=== PATIENT | male | born 1990 | race Caucasian/White ===

== ENCOUNTER 2016-06-08 22:31 | Emergency (ER) | payer OTHER, BC ==
[~2016-06-08] VITALS: Ht 177.8 cm; Wt 63.1 kg
[2016-06-08 22:58] VITALS: Ht 177.8 cm; Wt 63.1 kg
[2016-06-08] MEDS ORDERED: NO ROUTINE MEDS (23:02)
--- NOTE | 2016-06-08 23:38 | NUR ---
KIARA PT AMBULATORY TO XRAY FROM [facility]
--- NOTE | 2016-06-08 23:45 | NUR ---
LOBBY PT RETURNED TO LOBBY AMBULATORY FROM XRAY
--- NOTE | 2016-06-08 23:51 | NUR ---
[facility] PT AMBULATORY TO RECLINER IN [facility] FROM [facility]
--- NOTE | 2016-06-09 00:01 | ERPDOC ---
Departure Disposition Decision Date: Jun 09, 2016 Disposition Decision Time: 00:10 (MAE ALBRECHT APRN) Disposition: 01 DISCHARGED HOME, SELF-CARE Impression Impression (MAE ALBRECHT APRN) Impression: Primary Impression: Contusion of left foot Encounter type: initial encounter Qualified Codes: S90.32XA - Contusion of left foot, initial encounter Severity: Mild (MAE ALBRECHT APRN) Condition: Stable Seen By: Mid-level only (MAE ALBRECHT APRN) Patient Instructions: Foot Contusion (ED) Problems/Meds/Labs Reviewed?: Yes Medications reviewed and manag: Yes (MAE ALBRECHT APRN) Additional Instructions: Your x-rays did not show a fracture. Take ibuprofen or tylenol for pain. You may ice foot (see discharge instructions). Follow with your PCP in one week if pain is not improving, sooner if worsening pain. Follow treatment plan. Departure Forms: Return to Work/School Permit Return to Work/School Date: Jun 10, 2016 Follow up care ordered?: Yes Mental Status: Alert, Oriented (MAE ALBRECHT APRN) HPI General Chief Complaint: Lower Extremity Injury Stated Complaint: LFT FOOT PAIN Time Seen by Provider: 23:52 Source: patient (MAE ALBRECHT APRN) Time Seen by Provider: 23:52 (MUSA OTERO DO) HPI Foot/Ankle Initial Comments 25-year-old male presents to ER with complaints of left foot pain. Patient states that he was at work this evening when a cart ran over the top of his foot. Cart had part in it at the time. Patient reports pain over distal metatarsals and phalanges. Patient is able to bear weight. Patient has not taken anything for pain. Duration: 1-3 hrs Pain Scale: Now: 6/10 Location: left: foot Associated Symptoms: pain with extension, pain with flexion, DENIES: bruising, numbness, pain with standing, redness, swelling, weakness (MAE ALBRECHT APRN ) Allergies: Coded Allergies: No Known Allergies (Unverified , 06/08/16) Past History Past Medical History Pt denies signifigant PMH (MAE ALBRECHT APRN) Surgical History Denies Surgeries (MAE ALBRECHT APRN) Family History Family PMH: FOUND: other (noncontributory) (ALBRECHT,MAE A SONAR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) Social History Current Occupational Status: employed (MAE ALBRECHT SON[employer]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) Review of Systems Constitutional Constitutional: DENIES: chills, fever (CHETAN ALBRECHTS A SONAR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) Eyes General: DENIES: erythema, exudate Lids/Accessories: DENIES: erythema, swelling (CHETAN ALBRECHTS A SONAR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) ENMT Ears: DENIES: pain Hearing: DENIES: hearing loss Sinuses: DENIES: congestion, rhinorrhea Mouth/Throat: DENIES: sore throat (CHETAN ALBRECHTS A [employer]ONAR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) Cardiovascular Cardiac: DENIES: chest pain, murmur (CHETAN ALBRECHTS A SONAR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) Pulmonary Respiratory: DENIES: cough, dyspnea (CHETAN ALBRECHTS A SONAR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) GI Upper Abdomen: DENIES: nausea, pain, vomiting Lower Abdomen: DENIES: diarrhea, pain (CHETAN ALBRECHTS A SONAR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) General: DENIES: pain (CHETAN ALBRECHTS A SONAR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) Musculoskeletal General: pain, see HPI, tenderness (CHETAN ALBRECHTS A SONAR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) Integumentary Skin: DENIES: color change, itching, rash (CHETAN ALBRECHTS A SONAR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) Neurological General: DENIES: ataxia, change in strength, numbness, paralysis/paresis, weakness (CHETAN ALBRECHTS A SONAR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) Psychiatric Psychiatric: DENIES: anxiety, depression, nervousness (CHETAN ALBRECHTS A SONAR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) Exam General General Nourishment: well nourished, well developed, no acute distress, adult General Body Habitus: disheveled Vital Signs: Temperature: 98.6, Source: Oral, Heart Rate: 88, Respiratory Rate : 16, BP: 132/82, Pulse Oximetry: 99 Height (Feet): 5 Height (Inches): 10.00 (CHETAN ALBRECHTS A SONAR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) Fastrak Foot/Ankle Foot/Ankle : Leg: Left Ankle: NOT FOUND: achilles tendon insertion, anterior drawer sign, decreased ROM, deformity, ecchymosis, foot drop, numbness, swelling, tender lat. foot, tender lat. malleolus, tender med. malleolus, tender mid foot, weakness Foot: other (TTP over distal metatarsal and phalanges 1-5), NOT FOUND: deformity, discoloration, numbness, swelling, tender 1st MTP joint, tender plantar fascia Toes: cap refill <2 sec ea toe, decreased ROM (due to pain), NOT FOUND: deformity, ecchymosis, erythema, nail avulsion Dorsalis Pedis Pulse: 2+ (MAE ALBRECHT APRN) Eyes (brief) Eyes Brief: found: EOMI (MAE ALBRECHT APRN) ENMT (brief) ENMT Brief: NOT FOUND: nasal exudate, nasal swelling (MAE ALBRECHT APRN) Neck (brief) Neck Brief: FOUND: trachea midline (MAE ALBRECHT APRN) Respiratory (brief) Respiratory Brief: FOUND: clear all collins, equal bilaterally, symmetrical ( MAE ALBRECHT APRN) Cardiovascular (brief) Cardiac Brief: FOUND: regular rate, regular rhythm (MAE ALBRECHT APRN) Integumentary (brief) Integumentary Brief: FOUND: dry, pink, warm (MAE ALBRECHT APRN) Neurologic (brief) Neurological Brief: FOUND: motor-no gross deficits, sensory-no gross deficits ( MAE ALBRECHT APRN) Neurologic RN Documented GCS Eye Opening: (4)Spontaneous Verbal: (5)Oriented Motor: (6)Obeys Commands Total: (MAE ALBRECHT APRN) Psychiatric (brief) Psychiatric Brief: FOUND: alert, oriented (MAE ALBRECHT APRN) Differential Diagnoses Considering: Contusion, Fracture, Sprain, Strain (MAE ALBRECHT APRN) Progress Results/Orders Orders Procedure Category Date Status Time Foot Left 3 Views RAD 06/08/16 Taken 23:07 (JULYMUSA DO) Progress Progress I offered patient ibuprofen or tylenol for pain which patient declined. I discussed x-ray and exam findings with patient. Patient verbalized understanding of treatment plan, follow up as needed with PCP and return precautions. Patient again offer ibuprofen which he declined. (MAE ALBRECHT APRN) Xray Xray : Xray: Foot L (no acute fractures (Dr. Otero)) (MAE ALBRECHT APRN) MEA ALBRECHT APRN Jun 09, 2016 00:01 JULYMUSA DO Jun 09, 2016 05:15
--- NOTE | 2016-06-09 00:29 | NUR ---
INSTRUCTIONS DISMISSAL INSTRUCTIONS GIVEN TO PT WORK NOTE PROVIDED PT VERBALIZED UNDERSTANDING OF ALL
[2016-06-09 00:30] VITALS: BP 132/82; PULSE 88; RESP 16; TEMP 98.6; O2SAT 99
--- NOTE | 2016-06-09 00:30 | NUR ---
DISMISS PT DISMISSED AMBULATORY WITH FATHER
--- NOTE | 2016-06-09 09:19 | DI ---
EXAM: FOOT LEFT 3 VIEWS COMPARISON: None available. HISTORY: ITS.REASON: INJURY, PAIN . FINDINGS: There is no evidence for acute fracture, subluxation, or dislocation. No osseous abnormality is identified. The articulating surfaces are smooth. IMPRESSION: Unremarkable exam. LOCATION OF DICTATION: [facility] – [place] .
== END 2016-06-09 00:30 | disposition home or self-care (01) ==
LOC: ED 22:31
DX: S90.32XA Contusion of left foot, initial encounter (principal); W22.8XXA Striking against or struck by other objects, initial encounter; Y93.9 Activity, unspecified; Y92.63 Factory as the place of occurrence of the external cause; Y99.0 Civilian activity done for income or pay